=== PATIENT | female | born 1935 | race Caucasian/White ===

== ENCOUNTER 2020-06-03 05:15 | Emergency (ER) | payer OTHER ==
[~2020-06-03] VITALS: Ht 170.2 cm; Wt 72.6 kg
[2020-06-03 05:25] VITALS: Ht 170.2 cm; Wt 72.6 kg
[2020-06-03 07:57] LABS: CALCIUM 8.9 mg/dL (8.5-10.1); CARBON DIOXIDE 27.7 mmol/L (21-32); CHLORIDE SERUM 99 mmol/L (98-107); GLUCOSE SERUM 236 mg/dL (74-106); SODIUM SERUM 136 mmol/L (136-145)
[2020-06-03 08:02] LABS: ALKALINE PHOSPHATASE 128 U/L (46-116); ALT/SGPT 19 U/L (14-59); AST/SGOT 17 U/L (15-37); BILIRUBIN TOTAL 1.03 mg/dL (0.20-1.00); TOTAL PROTEIN, SERUM 6.7 g/dL (6.4-8.2)
[2020-06-03 08:07] LABS: ALBUMIN 3.2 g/dL (3.4-5.0)
[2020-06-03 08:55] LABS: BASOPHIL % 0.3 % (0-2); PLATELET COUNT 204 x10^3mcL (130-400); RED CELL DISTRIBUTION WIDTH 14.5 % (11.5-14.5)
[2020-06-03 11:48] VITALS: BP 114/53
== END 2020-06-03 11:48 | disposition home or self-care (01) ==
LOC: ED 05:15
PROVIDERS: Emergency Medicine
DX: E11.649 Type 2 diabetes mellitus with hypoglycemia without coma (principal); Z88.8 Allergy status to other drugs, medicaments and biological substances; Z79.4 Long term (current) use of insulin
CPT/HCPCS: 82962